=== PATIENT | female | born 1995 | race Hispanic/Latino ===

== ENCOUNTER → 2021-03-15 | Outpatient (CLI) | payer OTHER ==
--- NOTE | 2021-03-15 10:48 | REP ---
INDICATION: GEORGIE SCR MAMMO/FAM HX. COMPARISON: This is the patient's baseline mammogram. TECHNIQUE: Digital screening (2D) mammography was performed bilaterally in the CC and MLO projections. Additionally, breast tomosynthesis (3D mammography) was performed bilaterally in the CC and MLO projections. FINDINGS: The patient has no personal history of breast cancer. The patient has a family history of breast cancer in her mother at age 35 and in her sister at age 25. Patient has no history of breast surgery and has no breast complaints this time. [facility], the breasts are heterogeneously dense, which may obscure small masses. In the middle 3rd of the right breast directly deep to and medial to the nipple, at the 3 o'clock position, there is an area of architectural distortion. In the anterior 3rd of the left breast, above and medial to the nipple, in the upper inner quadrant, there is an area of architectural distortion.. IMPRESSION: BIRADS/ACR category 0: Incomplete, need additional imaging evaluation. This patient's Tyrer-Cuzick lifetime breast cancer risk assessment score is 66.1%. This mammogram was interpreted with the aid of an FDA-approved computer-aided detection system. The patient states she has not had a clinical breast exam in more than 1 year. The patient letter being requested is M0. RECOMMENDATION: 2D focal compression of both breasts in the CC and true lateral orientations and bilateral whole breast ultrasound. Due to the density of the breasts and the David Yolanda score greater than 20%, MR by/whole breast screening ultrasound is warranted. <Electronically signed by Kulwant Stein > 03/15/21 [id number]
== END ==
LOC: M WHC 07:13
PROVIDERS: ATTEND Physician Assistant
DX: R92.2 Inconclusive mammogram (principal); Z80.3 Family history of malignant neoplasm of breast; N63.15 Unspecified lump in the right breast, overlapping quadrants